=== PATIENT | female | born 1975 | race Caucasian/White ===

== ENCOUNTER 2021-07-31 08:31 | Emergency (ER) | payer OTHER ==
[2021-07-31 09:01] LABS: #Eosinphils 0.1 10x3/uL (0.0-0.5); #Monocytes 0.4 10x3/uL (0.0-1.1); %Basophils 0.4 % (0.0-2.0); %Eosinophils 2.1 % (0.0-6.0); %Lymphocytes 30.2 % (18.0-47.0); %Monocytes 8.6 % (0.0-10.0); %Neutrophils 57.9 % (40.0-75.0); Mean Corpuscular HGB CONC 33.4 g/dL (32.0-36.0); Mean Corpuscular Hemoglobin 30.2 pg (27.0-33.0); Mean Corpuscular Volume 90.3 fl (81.6-98.3); Mean Platelet Volume 9.3 fl (7.4-10.4); Platelet Count 220 10x3/uL (150-450); RBC Distribution Width 12.4 % (11.5-14.5); Red Blood Cell (RBC) Count 4.64 10x6/uL (3.90-5.03); White Blood Cell (WBC) Count 5.1 10x3/uL (3.5-10.5)
[2021-07-31 09:07] LABS: BHCG - Serum Negative (NEGATIVE); Pregs Control Background? CLEAR/WHITE (CLR/WHITE); Pregs Control Bar Appear? YES (CONTROL BAR)
[2021-07-31 09:13] LABS: ALT (SGPT) 25 U/L (8-55); AST (SGOT) 30 U/L (5-34); Albumin 4.2 g/dL (3.5-5.0); Alkaline Phosphatase 52 U/L (40-110); Anion Gap 13 mmol/L (10-20); BUN (Urea Nitrogen) 12 mg/dL (7.0-18.7); Bilirubin, Total 0.8 mg/dL (0.2-1.2); Calc. Creatinine Clearance 0 mL/min (70-130); Calcium 8.9 mg/dL (7.8-10.44); Carbon Dioxide 21 mmol/L (22-29); Chloride 105 mmol/L (98-107); Globulin 2.9 g/dL (2.4-3.5); Glucose 107 mg/dL (70-105); Potassium 3.8 mmol/L (3.5-5.1); Protein, Total 7.1 g/dL (6.0-8.3); Sodium 135 mmol/L (136-145)
[2021-07-31] MEDS ORDERED: Boostrix 0.5 ML (Tdap) VIAL ONE (09:18)
[2021-07-31] MEDS ORDERED: Morphine 4 MG/ML VIAL ONE (09:58)
[2021-07-31 10:08] LABS: INR-International Normal Ratio 0.9; Prothrombin Time 10.5 sec (9.5-12.1)
== END 2021-07-31 10:16 | disposition home or self-care (01) ==
LOC: CSHERS 08:31
DX: S30.1XXA Contusion of abdominal wall, initial encounter (principal); S90.32XA Contusion of left foot, initial encounter; K21.9 Gastro-esophageal reflux disease without esophagitis; V89.2XXA Person injured in unspecified motor-vehicle accident, traffic, initial encounter; W22.12XA Striking against or struck by front passenger side automobile airbag, initial encounter
CPT/HCPCS: 36415; 70450; 71260; 72125; 74177; 80053; 84703; 85025; 85610; 90471; 90715; 93005; 96374; G0390; J2270